=== PATIENT | female | born 2005 | race Caucasian/White ===

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

== ENCOUNTER 2024-03-01 13:32 | Emergency (ER) | payer OTHER, SELFPAY ==
[2024-03-01] MEDS ORDERED: Ketorolac Tromethamine 30 MG (1 mL) VIAL ONE (13:54)
== END 2024-03-01 13:59 | disposition home or self-care (01) ==
LOC: BURERS 13:32
DX: R09.1 Pleurisy (principal); F17.290 Nicotine dependence, other tobacco product, uncomplicated
CPT/HCPCS: 96372; 99284; J1885